=== PATIENT | female | born 1990 | race Caucasian/White ===

== ENCOUNTER 2016-12-24 20:38 | Emergency (ER) | payer MEDICAID, OTHER ==
[~2016-12-24] VITALS: Ht 160 cm; Wt 70.0 kg
[2016-12-24] MEDS ORDERED: ACETAMINOPHEN 325MG TABLET PO ONE (23:00)
[2016-12-25 00:35] VITALS: BP 118/59
== END 2016-12-25 01:52 | disposition home or self-care (01) ==
LOC: ER 20:39
DX: O26.893 Other specified pregnancy related conditions, third trimester (principal); S16.1XXA Strain of muscle, fascia and tendon at neck level, initial encounter; S09.90XA Unspecified injury of head, initial encounter; Z3A.31 31 weeks gestation of pregnancy; W20.8XXA Other cause of strike by thrown, projected or falling object, initial encounter; Y93.89 Activity, other specified; Y92.89 Other specified places as the place of occurrence of the external cause; Y99.8 Other external cause status
CPT/HCPCS: 72125; 81025; 99284

== ENCOUNTER 2019-03-30 16:27 | Emergency (ER) | payer OTHER ==
[~2019-03-30] VITALS: Ht 165.1 cm; Wt 55.0 kg
[2019-03-30] MEDS ORDERED: KETOROLAC 30MG/ML VIAL IM ONE (18:30)
[2019-03-30] MEDS ORDERED: KETOROLAC 15MG/ML VIAL IV ONE (18:45)
[2019-03-30 19:13] VITALS: BP 124/66
== END 2019-03-30 19:14 | disposition home or self-care (01) ==
LOC: ER 16:27
DX: S29.011A Strain of muscle and tendon of front wall of thorax, initial encounter (principal); F41.9 Anxiety disorder, unspecified; I10 Essential (primary) hypertension; X50.9XXA Other and unspecified overexertion or strenuous movements or postures, initial encounter; Y93.89 Activity, other specified; Y92.89 Other specified places as the place of occurrence of the external cause; Y99.8 Other external cause status
CPT/HCPCS: 71045; 81025; 93005; 96374; 99283; J1885; 96372

== ENCOUNTER 2020-04-16 19:41 | Emergency (ER) | payer OTHER ==
[~2020-04-16] VITALS: Ht 134.6 cm; Wt 54.0 kg
[2020-04-16 19:54] VITALS: BP 123/43
== END 2020-04-16 21:50 | disposition home or self-care (01) ==
LOC: ER 19:41
DX: S90.562A Insect bite (nonvenomous), left ankle, initial encounter (principal); M25.572 Pain in left ankle and joints of left foot; I10 Essential (primary) hypertension; W57.XXXA Bitten or stung by nonvenomous insect and other nonvenomous arthropods, initial encounter; Y93.89 Activity, other specified; Y92.89 Other specified places as the place of occurrence of the external cause; Y99.8 Other external cause status
CPT/HCPCS: 99281; 99283